=== PATIENT | female | born 1960 | race African-American/Black ===

== ENCOUNTER 2016-08-06 09:56 | Outpatient (CLI) | payer OTHER ==
--- NOTE | 2016-08-06 12:50 | Mammography Report ---
BILATERAL DIGITAL SCREENING MAMMOGRAM with CAD: 08/06/16 09:56:00 CLINICAL: Routine screening. COMPARISON: None available. FINDINGS: The breasts are almost entirely fatty few residual fibroglandular densities.No mass, architectural distortion or suspicious calcifications. IMPRESSION: No mammographic evidence of malignancy. BI-RADS CATEGORY: 1 -- Negative RECOMMENDATION: Routine mammographic screening in one year. COMMENT: Patient follow-up letters are generated by our [employer] application.
== END 2016-08-06 09:57 | disposition home or self-care (01) ==
LOC: MAMMO 09:56
PROVIDERS: ATTEND Nurse Practitioner Family
DX: Z12.31 Encounter for screening mammogram for malignant neoplasm of breast (principal)
CPT/HCPCS: 77067; G0202

== ENCOUNTER 2016-10-16 06:41 | Day surgery (SDC) | payer OTHER | END 2016-10-16 06:42 | disposition home or self-care (01) | LOC: GIO 06:41 | PROVIDERS: ATTEND Internal Medicine Gastroenterology | DX: Z12.11 Encounter for screening for malignant neoplasm of colon (principal); Z53.8 Procedure and treatment not carried out for other reasons ==

== ENCOUNTER 2019-05-29 13:18 | Outpatient (CLI) | payer OTHER | END 2019-05-29 13:19 | disposition home or self-care (01) | LOC: MAMMO 13:18 | PROVIDERS: ATTEND Clinical Nurse Specialist Adult Health | DX: Z12.31 Encounter for screening mammogram for malignant neoplasm of breast (principal) | CPT/HCPCS: 77067 ==